=== PATIENT | female | born 1985 | race African-American/Black ===

== ENCOUNTER 2019-02-07 17:11 | Inpatient (IN) | payer OTHER ==
[~2019-02-07] VITALS: Ht 154.9 cm; Wt 84.1 kg
[2019-02-07 17:25] VITALS: BP 129/79; PULSE 89; TEMP 98.7
[2019-02-07] MEDS ORDERED: PRENATAL PO (17:32)
[2019-02-07 18:30] VITALS: BP 111/69; PULSE 85
[2019-02-07 19:00] VITALS: BP 109/63; PULSE 85; TEMP 98.8
[2019-02-07 19:03] LABS: BASO # 0.1 (0.0-0.2); BASO % 0.6 % (0.0-2.0); EOS # 0.3 (0.0-0.7); GRAN # 5.4 (1.4-6.5); GRAN % 62.8 % (42.2-75.2); HEMOGLOBIN 11.7 g/dl (12.5-16.0); LYMPH # 1.9 (1.2-3.4); MEAN CELL VOLUME 88 fl (80.0-100.0); MEAN CORPUSCULAR HEMOGLOBIN 30 pg (27.0-31.0); MEAN CORPUSCULAR HGB CONC 34 g/dl (33.0-37.0); MEAN PLATELET VOLUME 11.5 fl (7.4-10.4); MONO # 0.9 (0.1-0.6); MONO % 10.8 % (1.7-9.3); PLATELET COUNT 201 K/mm3 (130-400); RED BLOOD COUNT 3.93 M/mm3 (4.10-5.30); REDCELL DISTRIBUTION WIDTH-CV 13.9 % (11.5-14.5)
[2019-02-07 19:07] LABS: HEMATOCRIT 34.6 % (37.0-47.0)
[2019-02-07 23:00] VITALS: BP 100/62; PULSE 78; TEMP 97.5
[2019-02-08] VITALS (53 sets, daily range): BP systolic 96–137; BP diastolic 51–84; PULSE 71–98; TEMP 98–98.7
[2019-02-09 07:21] LABS: HEMATOCRIT 34.2 % (37.0-47.0); HEMOGLOBIN 11.6 g/dl (12.5-16.0)
[2019-02-09 08:10] VITALS: BP 123/69; PULSE 92; TEMP 98
[2019-02-09 16:24] VITALS: BP 125/87; PULSE 84; TEMP 98.3
[2019-02-09 21:15] VITALS: BP 121/67; PULSE 76; TEMP 98.1
[2019-02-10 02:25] VITALS: BP 129/81; PULSE 79; TEMP 98.2
[2019-02-10 07:00] VITALS: BP 109/70; PULSE 81; TEMP 97.3
[2019-02-10] MEDS ORDERED: IBU600 MG PO (08:02)
[2019-02-10 16:45] VITALS: BP 121/69; PULSE 84; TEMP 98.1
== END 2019-02-10 18:00 | disposition home or self-care (01) | DRG 807 ==
LOC: LDRO 17:11 → LDR 17:14 → LDRO 19:16 → LDR 19:17 → OB 19:17
PROVIDERS: Obstetrics & Gynecology; ADMIT Obstetrics & Gynecology
PROC: 10E0XZZ Delivery of Products of Conception, External Approach (ICD-10-PCS; principal; 2019-02-08)
PROC: 0KQM0ZZ Repair Perineum Muscle, Open Approach (ICD-10-PCS; 2019-02-08)
PROC: 3E0S3NZ Introduction of Analgesics, Hypnotics, Sedatives into Epidural Space, Percutaneous Approach (ICD-10-PCS; 2019-02-08)
DX: O99.824 Streptococcus B carrier state complicating childbirth (principal); Z37.0 Single live birth; Z3A.37 37 weeks gestation of pregnancy; Z87.440 Personal history of urinary (tract) infections; O70.1 Second degree perineal laceration during delivery
CPT/HCPCS: J2540; J2590; J7120